=== PATIENT | female | born 1960 | race Caucasian/White ===

== ENCOUNTER 2017-05-04 16:19 | Inpatient (IN) | payer BC, OTHER ==
[~2017-05-04] VITALS: Ht 154.9 cm; Wt 91.1 kg
[2017-05-04] MEDS ORDERED: SODIUM CHLORIDE 0.9% 1,000 ML IV ONE ×2 (16:28)
[2017-05-04 17:09] LABS: Basophils # (auto) 0 uL; Basophils % (auto) 0.4 % (0.0-2.0); Eosinophils # (auto) 0.1 uL; Eosinophils % (auto) 1.3 % (0.0-7.0); Hematocrit 40.1 % (36.0-46.0); Hemoglobin 13.2 g/dL (12.2-16.2); Lymphocytes # (auto) 1.5 uL; Lymphocytes % (auto) 13.6 % (10.0-50.0); Mean Corpuscular Hemoglobin 29.8 pg (28.0-32.0); Mean Corpuscular Hgb Conc. 32.8 g/dL (32.0-36.0); Mean Corpuscular Volume 90.9 fL (80.0-100.0); Monocytes # (auto) 0.7 uL; Monocytes % (auto) 6.2 % (0.0-12.0); Neutrophils # (auto) 8.8 uL; Neutrophils % (auto) 78.5 % (37.0-80.0); Nucleated Red Blood Cells % 0.1 %; Platelet Count (auto) 335 10^3/uL (140-450); Red Blood Cells 4.42 10^6/uL (4.0-5.20); Red Cell Distribution Width 14.8 % (11.8-14.3); White Blood Cell 11.1 10^3/uL (4.4-10.8)
[2017-05-04 17:24] LABS: INR 0.98 (0.9-1.15); Partial Thromboplastin Time 25.9 sec (22.64-33.71); Prothrombin Time 10.7 sec (9.37-12.3)
[2017-05-04 17:41] LABS: Alanine Aminotransferase 18 U/L (13-56); Albumin 3.5 g/dL (3.4-5.0); Alkaline Phosphatase 88 U/L (45-117); Anion Gap 9 (5-15); Aspartate Aminotransferase 13 U/L (15-37); BUN/Creatinine Ratio 12.8; Bilirubin, Total 0.2 mg/dL (0.2-1.0); Blood Urea Nitrogen 14 mg/dL (7-18); Calcium 8.9 mg/dL (8.5-10.1); Carbon Dioxide 22 mmol/L (21-32); Chloride 113 mmol/L (98-107); GFR African American 67 mL/min; GFR Non-African American 56 mL/min; Glucose 117 mg/dL (74-106); Sodium 144 mmol/L (136-145); Total Protein 7.7 g/dL (6.4-8.2)
[2017-05-04] MEDS ORDERED: MORPHINE SULFATE 4 MG/ML SYR/VIAL ONE (22:11)
[2017-05-04] MEDS ORDERED: ONDANSETRON HCL 4 MG/2 ML VIAL IV ONE (22:15)
[2017-05-04] MEDS ORDERED: MORPHINE SULFATE 10 MG/ML INJ 1ML SDV IV ONE (22:15)
[2017-05-04] MEDS ORDERED: ACETAMINOPHEN 500 MG TAB PO PRN (23:45)
[2017-05-05] VITALS (7 sets, daily range): BP systolic 112–158; BP diastolic 65–90
[2017-05-05] MEDS: ONDANSETRON HCL 4 MG/2 ML VIAL IV PRN ×2 (01:54→20:53)
[2017-05-05] MEDS: HYDROcodone-ACET 5/325MG TAB PO PRN ×4 (01:54→15:00)
[2017-05-05 07:40] LABS: Basophils # (auto) 0 uL; Basophils % (auto) 0.4 % (0.0-2.0); Eosinophils # (auto) 0.2 uL; Eosinophils % (auto) 2.5 % (0.0-7.0); Hematocrit 35.3 % (36.0-46.0); Hemoglobin 11.7 g/dL (12.2-16.2); Lymphocytes # (auto) 2.3 uL; Lymphocytes % (auto) 32.1 % (10.0-50.0); Mean Corpuscular Hemoglobin 30.2 pg (28.0-32.0); Mean Corpuscular Hgb Conc. 33.2 g/dL (32.0-36.0); Mean Corpuscular Volume 90.9 fL (80.0-100.0); Monocytes # (auto) 0.7 uL; Nucleated Red Blood Cells % 0.1 %; Platelet Count (auto) 299 10^3/uL (140-450); Red Blood Cells 3.88 10^6/uL (4.0-5.20); Red Cell Distribution Width 14.5 % (11.8-14.3); White Blood Cell 7.2 10^3/uL (4.4-10.8)
[2017-05-05 07:53] LABS: BUN/Creatinine Ratio 17.3; Calcium 8.3 mg/dL (8.5-10.1); Potassium 3.7 mmol/L (3.5-5.1)
[2017-05-05] MEDS ORDERED: NEOSTIGMINE 1 MG/ML INJ (10mg/10ML VIAL) IV ONE (08:24)
[2017-05-05] MEDS ORDERED: GLYCOPYRROLATE 0.2 MG/ML 1ML VIAL IV ONE (08:24)
[2017-05-05] MEDS: MORPHINE SULF INJ 2 MG/ML SYRINGE 1ML IV PRN ×2 (12:01→18:58)
[2017-05-05] MEDS ORDERED: METOCLOPRAMIDE HCL 10 MG TAB PO PRN (19:30)
[2017-05-05] MEDS: QUEtiapine FUMARATE 100 MG TAB PO SCH (20:48)
[2017-05-05] MEDS: traZODone HCL 50 MG TAB PO SCH (20:49)
[2017-05-05] MEDS: busPIRone HCL 10 MG TAB PO SCH (20:49)
[2017-05-06] MEDS ORDERED: MORPHINE SULFATE 4 MG/ML SYR/VIAL ONE (03:06)
[2017-05-06] MEDS: ONDANSETRON HCL 4 MG/2 ML VIAL IV PRN ×5 (03:08→22:16)
[2017-05-06] MEDS: MORPHINE SULF INJ 2 MG/ML SYRINGE 1ML IV PRN (03:09)
[2017-05-06 05:00] VITALS: BP 117/73
[2017-05-06] MEDS: HYDROcodone-ACET 5/325MG TAB PO PRN ×3 (05:16→20:13)
[2017-05-06] MEDS: busPIRone HCL 10 MG TAB PO SCH ×2 (08:30→22:17)
[2017-05-06] MEDS: MORPHINE SULFATE 4 MG/ML SYR/VIAL IV PRN ×4 (08:31→22:16)
[2017-05-06 09:00] VITALS: BP 127/67
[2017-05-06 13:00] VITALS: BP 109/76
[2017-05-06] MEDS ORDERED: DICY20TA66 PO (14:44)
[2017-05-06] MEDS ORDERED: VORT10TA PO (14:44)
[2017-05-06] MEDS ORDERED: LEVO50TA66 PO (14:44)
[2017-05-06] MEDS ORDERED: CLON0.1T PO (14:44)
[2017-05-06] MEDS ORDERED: CHOL20007 PO (14:44)
[2017-05-06] MEDS ORDERED: ONDA4TAB5 PO (14:44)
[2017-05-06] MEDS ORDERED: QUET200T44 PO (14:44)
[2017-05-06] MEDS ORDERED: TRAZ300T13 PO (14:44)
[2017-05-06] MEDS ORDERED: TOPI100T68 PO (14:44)
[2017-05-06] MEDS ORDERED: TIOT17SP IN (14:44)
[2017-05-06] MEDS ORDERED: ESOM40CA39 PO (14:44)
[2017-05-06] MEDS ORDERED: RANI-229 PO (14:44)
[2017-05-06] MEDS ORDERED: FENO54TA4 PO (14:44)
[2017-05-06] MEDS ORDERED: ATOR20TA50 PO (14:44)
[2017-05-06] MEDS ORDERED: BUSP15TA60 PO (14:44)
[2017-05-06 16:27] LABS: Urine Bacteria NONE SEEN /hpf (None Seen); Urine Blood Negative /uL (Negative); Urine Specific Gravity 1.014 (1.001-1.035); Urine WBC 2 /hpf (0 - 5)
[2017-05-06 17:00] VITALS: BP 114/68
[2017-05-06] MEDS ORDERED: PATIENTS OWN MEDICATION PO SCH ×2 (18:00→22:00)
[2017-05-06] MEDS: TIOTROPIUM IN SCH (18:51)
[2017-05-06 22:03] VITALS: BP 119/68
[2017-05-06] MEDS: traZODone HCL 50 MG TAB PO SCH (22:17)
[2017-05-06] MEDS: QUEtiapine FUMARATE 100 MG TAB PO SCH (22:18)
[2017-05-06] MEDS: FAMOTIDINE 20 MG TAB PO SCH (22:18)
[2017-05-06] MEDS: TRINTELLIX 10 MG PO SCH (22:23)
[2017-05-07] MEDS: HYDROcodone-ACET 5/325MG TAB PO PRN ×4 (00:57→22:53)
[2017-05-07] MEDS: ONDANSETRON HCL 4 MG/2 ML VIAL IV PRN ×3 (05:00→20:27)
[2017-05-07] MEDS: MORPHINE SULFATE 4 MG/ML SYR/VIAL IV PRN ×7 (05:01→20:28)
[2017-05-07 05:42] VITALS: BP 103/62
[2017-05-07] MEDS: LEVOTHYROXINE SODIUM 25 MCG TAB PO SCH (06:48)
[2017-05-07] MEDS ORDERED: BUPIVACAINE W/ EPINEPH 0.25% INJ 50ML MDV ONE (07:40)
[2017-05-07] MEDS ORDERED: BUPIVACAINE 0.25% INJ 50ML VIAL ONE (07:40)
[2017-05-07] MEDS ORDERED: CLINDAMYCIN 600MG IV 50 ML IV ONE (07:45)
[2017-05-07 08:04] VITALS: BP 111/64
[2017-05-07] MEDS ORDERED: ALBUTEROL SULF 2.5 MG/0.5ML(0.5%) NEB SOLN NEB ONE (08:15)
[2017-05-07] MEDS ORDERED: PROPOFOL 10 MG/ML 20 ML IV ONE (08:19)
[2017-05-07] MEDS ORDERED: fentaNYL CITRATE 100 MCG/2 ML VL ONE (08:19)
[2017-05-07] MEDS ORDERED: MIDAZOLAM HCL 1MG/1ML-2 ML VIAL ONE (08:19)
[2017-05-07] MEDS ORDERED: ROCURONIUM 10MG/ML 10ML VIAL IV ONE (08:20)
[2017-05-07] MEDS ORDERED: SUCCINYLCHOLINE CHLORIDE 20 MG/ML 10ML VIAL IV ONE (08:25)
[2017-05-07] MEDS ORDERED: MORPHINE SULFATE 4 MG/ML SYR/VIAL ONE ×2 (10:43→11:10)
[2017-05-07] MEDS ORDERED: HYDROmorphone HCL 2 MG/ML VL IV PRN (10:45)
[2017-05-07] MEDS ORDERED: MORPHINE SULFATE 4 MG/ML SYR/VIAL IV PRN (10:45)
[2017-05-07] MEDS ORDERED: ACETAMINOPHEN 325 MG TAB PO PRN (10:45)
[2017-05-07] MEDS ORDERED: KETOROLAC TROMETH 30 MG/ML 1ML VIAL IV ONE (10:45)
[2017-05-07] MEDS ORDERED: ePHEDrine SULFATE 50 MG/ML AMP IV PRN (10:45)
[2017-05-07] MEDS ORDERED: hydrALAZINE HCL 20 MG/ML VL IV PRN (10:45)
[2017-05-07] MEDS ORDERED: KETOROLAC TROMETH 30 MG/ML 1ML VIAL IV PRN (10:45)
[2017-05-07] MEDS ORDERED: ONDANSETRON HCL 4 MG/2 ML VIAL IV ONE (10:45)
[2017-05-07] MEDS ORDERED: KETOROLAC TROMETH 30 MG/ML 1ML VIAL ONE (10:53)
[2017-05-07 12:07] VITALS: BP 138/74
[2017-05-07] MEDS ORDERED: diphenhdrAMINE HCL 25 MG CAP PO PRN (13:30)
[2017-05-07] MEDS: busPIRone HCL 10 MG TAB PO SCH ×2 (14:25→21:34)
[2017-05-07] MEDS: FAMOTIDINE 20 MG TAB PO SCH ×2 (14:25→21:34)
[2017-05-07 17:03] VITALS: BP 127/69
[2017-05-07] MEDS: CLINDAMYCIN 600MG IV 50 ML IV SCH ×2 (18:11→21:35)
[2017-05-07] MEDS: TIOTROPIUM IN SCH (18:16)
[2017-05-07] MEDS: traZODone HCL 50 MG TAB PO SCH (21:33)
[2017-05-07] MEDS: QUEtiapine FUMARATE 100 MG TAB PO SCH (21:34)
[2017-05-07] MEDS: TRINTELLIX 10 MG PO SCH (21:34)
[2017-05-07 21:36] VITALS: BP 124/71
[2017-05-08] MEDS: ONDANSETRON HCL 4 MG/2 ML VIAL IV PRN ×5 (02:23→21:57)
[2017-05-08] MEDS: MORPHINE SULFATE 4 MG/ML SYR/VIAL IV PRN ×5 (02:24→21:57)
[2017-05-08 04:36] VITALS: BP 102/61
[2017-05-08] MEDS: HYDROcodone-ACET 5/325MG TAB PO PRN ×4 (04:48→19:31)
[2017-05-08] MEDS: CLINDAMYCIN 600MG IV 50 ML IV SCH ×3 (06:23→22:15)
[2017-05-08] MEDS: LEVOTHYROXINE SODIUM 25 MCG TAB PO SCH (06:37)
[2017-05-08 08:00] VITALS: BP 104/59
[2017-05-08] MEDS: busPIRone HCL 10 MG TAB PO SCH ×2 (09:36→22:15)
[2017-05-08] MEDS: FAMOTIDINE 20 MG TAB PO SCH ×2 (09:36→22:15)
[2017-05-08 12:00] VITALS: BP 120/71
[2017-05-08 17:00] VITALS: BP 139/75
[2017-05-08] MEDS: TIOTROPIUM IN SCH (17:37)
[2017-05-08 21:58] VITALS: BP 133/72
[2017-05-08] MEDS: QUEtiapine FUMARATE 100 MG TAB PO SCH (22:15)
[2017-05-08] MEDS: TRINTELLIX 10 MG PO SCH (22:15)
[2017-05-08] MEDS: traZODone HCL 50 MG TAB PO SCH (22:15)
[2017-05-09] MEDS: HYDROcodone-ACET 5/325MG TAB PO PRN ×5 (00:27→21:41)
[2017-05-09] MEDS: MORPHINE SULFATE 4 MG/ML SYR/VIAL IV PRN ×4 (04:34→20:28)
[2017-05-09] MEDS: ONDANSETRON HCL 4 MG/2 ML VIAL IV PRN ×4 (04:34→20:28)
[2017-05-09 05:43] VITALS: BP 129/68
[2017-05-09] MEDS: CLINDAMYCIN 600MG IV 50 ML IV SCH (06:03)
[2017-05-09] MEDS: LEVOTHYROXINE SODIUM 25 MCG TAB PO SCH (06:04)
[2017-05-09 08:45] VITALS: BP 140/80
[2017-05-09] MEDS: FAMOTIDINE 20 MG TAB PO SCH ×2 (09:19→21:42)
[2017-05-09] MEDS: busPIRone HCL 10 MG TAB PO SCH ×2 (09:19→21:41)
[2017-05-09 13:00] VITALS: BP 147/80
[2017-05-09 17:00] VITALS: BP 144/112
[2017-05-09] MEDS: TIOTROPIUM IN SCH (17:33)
[2017-05-09] MEDS: QUEtiapine FUMARATE 100 MG TAB PO SCH (21:42)
[2017-05-09] MEDS: traZODone HCL 50 MG TAB PO SCH (21:42)
[2017-05-09] MEDS: TRINTELLIX 10 MG PO SCH (21:46)
[2017-05-09 22:00] VITALS: BP 138/78
[2017-05-10] MEDS: MORPHINE SULFATE 4 MG/ML SYR/VIAL IV PRN ×3 (01:51→13:00)
[2017-05-10] MEDS: ONDANSETRON HCL 4 MG/2 ML VIAL IV PRN ×2 (01:51→06:46)
[2017-05-10 05:00] VITALS: BP 120/79
[2017-05-10] MEDS: LEVOTHYROXINE SODIUM 25 MCG TAB PO SCH (06:46)
[2017-05-10 08:00] VITALS: BP 150/90
[2017-05-10 09:00] VITALS: BP 150/90
[2017-05-10] MEDS: FAMOTIDINE 20 MG TAB PO SCH (09:51)
[2017-05-10] MEDS: busPIRone HCL 10 MG TAB PO SCH (09:51)
[2017-05-10] MEDS: HYDROcodone-ACET 5/325MG TAB PO PRN (09:51)
[2017-05-10 13:04] VITALS: BP 133/84
== END 2017-05-10 16:10 | disposition home or self-care (01) | DRG 505 ==
LOC: EDBD 16:19 → ER 16:19 → OVERFLOW 16:20 → EAST 05-05 01:30
PROVIDERS: ADMIT Nurse Practitioner Family; ATTEND Family Medicine
PROC: 0QSP04Z Reposition Left Metatarsal with Internal Fixation Device, Open Approach (ICD-10-PCS; principal; 2017-05-07 08:24)
DX: S92.322A Displaced fracture of second metatarsal bone, left foot, initial encounter for closed fracture (principal); I95.9 Hypotension, unspecified; S92.342A Displaced fracture of fourth metatarsal bone, left foot, initial encounter for closed fracture; R55 Syncope and collapse; E03.9 Hypothyroidism, unspecified; F31.9 Bipolar disorder, unspecified; S92.332A Displaced fracture of third metatarsal bone, left foot, initial encounter for closed fracture; I10 Essential (primary) hypertension; W18.2XXA Fall in (into) shower or empty bathtub, initial encounter; D72.829 Elevated white blood cell count, unspecified; Z80.8 Family history of malignant neoplasm of other organs or systems; Z82.49 Family history of ischemic heart disease and other diseases of the circulatory system; Z88.1 Allergy status to other antibiotic agents; Z88.0 Allergy status to penicillin; Z88.8 Allergy status to other drugs, medicaments and biological substances; Y99.8 Other external cause status; Y93.E1 Activity, personal bathing and showering; Y92.091 Bathroom in other non-institutional residence as the place of occurrence of the external cause
CPT/HCPCS: 12001; 36415; 70450; 71045; 73560; 73620; 73630; 73700; 76000; 80048; 80053; 81001; 84443; 84484; 85025; 85610; 85730; 93005; 94640; 96361; 96374; 96375; 97116; 97163; 97530; J0330; J1885; J2250; J2405; J2704; J3490

== ENCOUNTER 2020-04-20 01:36 | Emergency (ER) | payer BC ==
[~2020-04-20] VITALS: Ht 167.6 cm; Wt 90.7 kg
[~2020-04-20 01:36] MED LIST: ATOR20TA50 PO; BUSP15TA60 PO; CHOL20007 PO; CLON0.1T PO; DICY20TA PO; ESOM40CA39 PO; FENO54TA4 PO; LEVO50TA66 PO; ONDA-144 PO; QUET200T44 PO; RANI300T PO; TIOT17SP IN; TOPI100T68 PO; TRAZ300T13 PO; VORT10TA PO
[2020-04-20] MEDS ORDERED: MIDAZOLAM HCL 5 MG/ML-1ML VIAL IV ONE (02:45)
[2020-04-20] MEDS ORDERED: fentaNYL CITRATE 100 MCG/2 ML VL IV ONE (02:45)
[2020-04-20 03:02] LABS: Basophils # (auto) 0 10 ^3/uL (0-0.2); Basophils % (auto) 0.2 % (0.0-2.0); Eosinophils # (auto) 0.1 10 ^3/uL (0-0.8); Eosinophils % (auto) 1.2 % (0.0-7.0); Hematocrit 40.7 % (36.0-46.0); Hemoglobin 13.3 g/dL (12.2-16.2); Lymphocytes # (auto) 1.5 10 ^3/uL (0.4-5.4); Lymphocytes % (auto) 19.9 % (10.0-50.0); Mean Corpuscular Hemoglobin 29.8 pg (28.0-32.0); Mean Corpuscular Hgb Conc. 32.7 g/dL (32.0-36.0); Mean Corpuscular Volume 91.1 fL (80.0-100.0); Monocytes # (auto) 0.5 10 ^3/uL (0-1.3); Monocytes % (auto) 6.7 % (0.0-12.0); Neutrophils # (auto) 5.5 10 ^3/uL (1.6-8.6); Platelet Count (auto) 252 10^3/uL (140-450); Red Blood Cells 4.46 10^6/uL (4.0-5.20); Red Cell Distribution Width 14.2 % (11.8-14.3); White Blood Cell 7.7 10^3/uL (4.4-10.8)
[2020-04-20 03:20] LABS: Alanine Aminotransferase 24 U/L (13-56); Albumin 3.4 g/dL (3.4-5.0); Anion Gap 6 (5-15); Aspartate Aminotransferase 18 U/L (15-37); BUN/Creatinine Ratio 13.5; Blood Urea Nitrogen 15 mg/dL (7-18); Carbon Dioxide 23 mmol/L (21-32); Chloride 111 mmol/L (98-107); GFR African American 65 mL/min; GFR Non-African American 54 mL/min; Glucose 118 mg/dL (74-106); Magnesium 2.2 mg/dL (1.6-2.6); Potassium 3.4 mmol/L (3.5-5.1); Sodium 140 mmol/L (136-145)
[2020-04-20 03:25] LABS: Alkaline Phosphatase 98 U/L (45-117); Bilirubin, Total 0.2 mg/dL (0.2-1.0); Total Protein 6.7 g/dL (6.4-8.2)
[2020-04-20 03:44] LABS: INR 0.97 (0.9-1.15); Partial Thromboplastin Time 27.7 sec (23.0-31.2)
[2020-04-20] MEDS ORDERED: HYDROcodone-ACET 10/325MG TAB PO ONE ×2 (06:45)
[2020-04-20 07:55] VITALS: BP 113/63
== END 2020-04-20 08:47 | disposition home or self-care (01) ==
LOC: EDBD 01:36 → ER 01:40
DX: S82.891A Other fracture of right lower leg, initial encounter for closed fracture (principal); R73.9 Hyperglycemia, unspecified; R55 Syncope and collapse; I10 Essential (primary) hypertension; Z90.49 Acquired absence of other specified parts of digestive tract; Z79.899 Other long term (current) drug therapy; Z88.0 Allergy status to penicillin; Z88.1 Allergy status to other antibiotic agents; W19.XXXA Unspecified fall, initial encounter; Y93.89 Activity, other specified; Y92.89 Other specified places as the place of occurrence of the external cause; Y99.8 Other external cause status
CPT/HCPCS: 27840; 36415; 70450; 71045; 73600; 73610; 80053; 83735; 83880; 84443; 84484; 85025; 85379; 85610; 85730; 99152; 99153; 99285; J2250; J3010; J7030